=== PATIENT | male | born 1965 | race Caucasian/White ===

== ENCOUNTER 2016-11-17 05:57 | Day surgery (SDC) | payer BC, OTHER ==
--- NOTE | 2016-11-16 18:34 | SSS ---
CHIEF COMPLAINT: Need for screening colonoscopy. HISTORY OF PRESENT ILLNESS: Mr. Nova is a 51 year-old male who presented to my office for routine followup. He has recently turned 51. He needs a screening colonoscopy. The risks and benefits were discussed and he is agreeable with proceeding. He denies any abdominal pain, rectal bleeding or changes in his bowel habits. PAST MEDICAL HISTORY: 1. Nonalcoholic fatty liver disease. 2. Renal stones diagnosed in 2013. PAST SURGICAL HISTORY: 1. Right rotator cuff repair in May 2013. FAMILY HISTORY: Father at 69 from melanoma. Mother is healthy. He has 3 brothers, John with severe headaches and Jevon Nova with hypertension. He has a paternal grandfather with coronary artery disease. Maternal grandfather with lung cancer. Maternal grandmother with coronary artery disease. 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 He is with 2 children, ages 21 and 25. He drinks alcohol on a social basis only. He has never smoked. REVIEW OF SYSTEMS: Negative except as per History of Present Illness. PHYSICAL EXAMINATION: VITAL SIGNS: Height 5' 10", weight 244 pounds, blood pressure 120/80, pulse 60. GENERAL: He is awake and alert in no acute distress. HEENT: Unremarkable. NECK: Supple. CHEST: Lungs are clear. CARDIOVASCULAR: Regular rate and rhythm. ABDOMEN: Obese but benign. EXTREMITIES: Without edema. RECTAL: Exam is deferred until the time of colonoscopy. ASSESSMENT: 1. Need for screening colonoscopy. PLAN: Colonoscopy on 11/17/16. #[id number] MTDD
[2016-11-17] MEDS ORDERED: LACTATED RINGERS 1,000 ML ONE (06:39)
[2016-11-17] MEDS ORDERED: PROPOFOL 200 MG/20 ML VIAL IV ONE (07:00)
--- NOTE | 2016-11-17 09:04 | OP ---
DATE OF PROCEDURE: 11/17/16 PREOPERATIVE DIAGNOSIS: 1. Need for screening colonoscopy. POSTOPERATIVE DIAGNOSIS: 1. 0.5 by 0.5 cm proximal transverse colon polyp, removed by snare. 2. 0.5 by 0.5 cm hepatic flexure polyp, removed by snare. 3. 0.5 by 0.5 cm descending colon polyp, removed by snare. 4. 0.25 by 0.25 cm midsigmoid polyp versus inflammation, biopsied times two. 5. 0.25 by 0.25 cm rectal polyp, status post biopsy times two to obliteration. 6. No diverticula. 7. Probable sleep apnea. 8. Only fair bowel prep with copious amounts of liquid stool. PROCEDURE: 1. Colonoscopy. SURGEON: Bassam Abebe MD. ESTIMATED BLOOD LOSS: Less than 1 cc. COMPLICATIONS: No immediate complications. ANESTHESIA: Propofol 700 mg administered intravenously by Joel Benjamin CRNA, using monitored anesthesia care. TECHNIQUE: After informed consent was obtained from the patient, the patient was taken to the Endoscopy Suite and placed in the left lateral decubitus position. Incremental doses of propofol were given until adequate conscious sedation was obtained. Vital signs were monitored throughout the procedure. Supplemental oxygen was administered throughout the procedure. Digital rectal examination was performed, which showed a small/normal sized prostate. The colonoscope was then slowly advanced into the patient's rectum and up through the sigmoid, descending, transverse colon to around the hepatic flexure where two polyps were noted and removed with snare. After these two polyps were removed n the proximal transverse and the hepatic flexure region, the colonoscope was advanced further into the ascending colon and into the cecum. The usual cecal landmarks were noted and photographed. The terminal ileum was not entered. The colonoscope was then slowly withdrawn, taking great care to visualize all warner of the colon as best as possible. There was some difficulty given the copious amounts of liquid stool. I do feel confident that no polyps larger than 1 cm were missed, however. Upon further withdrawal, a descending colon polyp was noted and removed with a snare. In the midsigmoid, there was an inflammatory area versus several small polyps and biopsy was taken of this area times two. In the rectum, there were multiple very small polyps measuring 1 to 2 mm in size. Photograph of this was taken and sample biopsy of this area was also taken. Retroflexion showed no significant abnormalities other than grade 1 internal hemorrhoids. The colonoscope was then unretroflexed and air was suctioned out of the patient's rectum. No diverticula were noted. The colonoscope was removed from the patient. The patient tolerated the procedure well and was taken back to the recovery area in good condition. PLAN: Repeat colonoscopy in probably three years pending path report. He is to followup in my office in seven to ten days. We will discuss sleep study with him. He will likely need a two day bowel prep, perhaps just a Dulcolax two days prior. #[id number] [facility]ENTER[facility]ovanny
[2016-11-17 10:17] VITALS: BP 143/89; TEMP 98.5; O2SAT 100
== END 2016-11-17 09:45 | disposition home or self-care (01) ==
LOC: AMB 05:57
PROVIDERS: ATTEND Family Medicine
DX: Z12.11 Encounter for screening for malignant neoplasm of colon (principal); D12.3 Benign neoplasm of transverse colon; D12.4 Benign neoplasm of descending colon; D12.5 Benign neoplasm of sigmoid colon; K62.1 Rectal polyp; K64.0 First degree hemorrhoids; K76.0 Fatty (change of) liver, not elsewhere classified
CPT/HCPCS: 00810; 45380; 45385; J3490; J7120